=== PATIENT | male | born 1945 | race African-American/Black ===

== ENCOUNTER 2018-12-30 23:41 | Inpatient (IN) | payer OTHER ==
[2018-12-31 00:33] LABS: Protime INR 1.19
[2018-12-31] MEDS ORDERED: NA CHLORIDE 0.9% 2,000 ML ONE ×2 (00:34)
[2018-12-31 00:35] LABS: Absolute Lymphocytes (CBC) 0.5 K/uL (0.7-4.9); Basophils % 0.1 % (0-1.3); Hematocrit 35.5 % (39.6-49.0); Lymphocytes % 6.1 % (15.3-44.8); MPV 9.4 fL (7.6-11.3); RBC Red Blood Cell Count 4.15 M/uL (4.33-5.43)
[2018-12-31 00:44] LABS: Albumin 3.1 g/dL (3.4-5.0); Bilirubin Total 0.8 mg/dL (0.2-1.0); Potassium 3.6 mmol/L (3.5-5.1); Protein, Total 7.4 g/dL (6.4-8.2); Troponin (Emerg Dept Use Only) 0.02 ng/mL (0.0-0.045)
[2018-12-31] MEDS ORDERED: AZITHROMYCIN 500 MG INJ IVPB ONE (01:03)
[2018-12-31] MEDS ORDERED: CEFTRIAXONE/SWI 1gm 1 GM/10 ML SYR ONE (01:03)
[2018-12-31] MEDS ORDERED: NA CHLORIDE 0.9% 250 ML ONE (01:03)
[2018-12-31] MEDS ORDERED: ACETAMINOPHEN 500 MG TAB ONE (01:28)
[2018-12-31 01:50] LABS: Urine Blood TRACE (NEG); Urine Glucose NEGATIVE (NEG); Urine Protein 2+ (NEG); Urine Specific Gravity 1.025 (1.005-1.030)
[2018-12-31 02:22] LABS: Urine Bacteria 20-50 /HPF (NONE SEEN); Urine Culture Reflex Order REFLEXED; Urine Mucus 2+ /HPF (NONE SEEN); Urine RBC <5 /HPF (NONE SEEN)
[2018-12-31 02:40] LABS: Blood Morphology Comment NOT SEEN (NOT SEEN); Platelet Estimate ADEQ
--- NOTE | 2018-12-31 04:07 | ER ---
Nurse's Notes [facility] Name: Daniel Pan Age: 73 yrs Sex: Male : 1945 Arrival Date: 12/30/2018 Time: 23:51 Bed 19 Private MD: Diagnosis: fever;sepsis;complicated UTI Presentation: 12/31 00:00 Presenting complaint: EMS states: we were tone out with a complaint of fall. when we rr5 got there patient just slide from the bed and cannot stand up, lethargy noted complaining of fever max of temperature 102.8 F weakness, shaking and chills. AO x2 (person and place) patient is diaphoretic tired and sleepy. 00:00 Transition of care: patient was not received from another setting of care. Onset of rr5 symptoms was December 30, 2018. Risk Assessment: Do you want to hurt yourself or someone else?. Initial Sepsis Screen: Does the patient meet any 2 criteria? RR > 20 per min. Temp <36.0*C (96.8*F)) or > 38.3*C (100.9*F). Altered Mental Status. HR > 90 bpm. Yes Does the patient have a suspected source of infection? Yes: Productive cough/pneumonia. Care prior to arrival: Medication(s) given: Tylenol. 00:00 Method Of Arrival: EMS: [facility] rr5 00:00 Acuity: SHELLY 3 rr5 Historical: - Allergies: 00:00 No Known Allergies; rr5 - Home Meds: 00:00 Aspirin Oral [Active]; atorvastatin oral oral [Active]; cetirizine oral oral [Active]; rr5 cholecalciferol (vitamin D3) oral oral [Active]; cyanocobalamin (vitamin B-12) oral oral [Active]; Desonide Topical [Active]; finasteride oral oral [Active]; Glipizide Oral [Active]; Guaifenesin Oral [Active]; Hydrochlorothiazide Oral [Active]; Ketoconazole Topical [Active]; Metformin Oral [Active]; Metoprolol Tartrate Oral [Active]; - PMHx: 00:00 Diabetes - NIDDM; Hypertension; Myocardial infarction; Hyperlipidemia; GERD; rr5 - PSHx: 00:00 Tonsillectomy; rr5 - Immunization history:: Adult Immunizations up to date. - Social history:: Smoking status: Patient/guardian denies using tobacco, Patient/guardian denies using alcohol, street drugs. - Ebola Screening: : Patient negative for fever greater than or equal to 101.5 degrees Fahrenheit, and additional compatible Ebola Virus Disease symptoms Patient denies exposure to infectious person Patient denies travel to an Ebola-affected area in the 21 days before illness onset. Screenin:10 Abuse screen: Denies threats or abuse. Denies injuries from another. Nutritional rr5 screening: No deficits noted. Tuberculosis screening: No symptoms or risk factors identified. Fall Risk IV access (20 points). Gait- Weak (10 pts.). Mental Status- Overestimates/Forgets Limitations (15 pts.). Total Bernstein Fall Scale indicates High Risk Score (45 or more points). Fall prevention measures have been instituted. Side Rails Up X 2 Placed Close to Nursing Station Frequent Obs/Assessments Occuring Family Present and informed to notify staff if the need to leave the bedside As available patient and family educated on Fall Prevention Program and Strategies. Assessment: 00:00 General: Appears in no apparent distress. uncomfortable, ill, obese, Behavior is calm, rr5 cooperative, Reports chills for fever for fatigue for. Pain: Denies pain. Neuro: Level of Consciousness is awake, alert, obeys commands, Oriented to person, place, Moves all extremities. Full function Speech is normal, Facial symmetry appears normal, Pupils are PERRLA. Cardiovascular: Capillary refill < 3 seconds Patient's skin is warm and dry. Respiratory: Airway is patent Respiratory effort is even, unlabored, Respiratory pattern is tachypnea Parent/caregiver reports the patient having cough that is. GI: No signs and/or symptoms were reported involving the gastrointestinal system. : No signs and/or symptoms were reported regarding the genitourinary system. EENT: No signs and/or symptoms were reported regarding the EENT system. Derm: Skin is intact, Skin temperature is warm. Musculoskeletal: Circulation, motion, and sensation intact. Capillary refill < 3 seconds, Parent/caregiver report the patient having weakness in right leg and left leg fatigue ad tired. 00:48 Reassessment: ED provider aware for lactate level 4.7. called by fletcher of laboratory. rr5 01:00 Reassessment: Patient appears in no apparent distress at this time. No changes from rr5 previously documented assessment. 02:00 Reassessment: Patient appears in no apparent distress at this time. no complaints made. rr5 Patient states feeling better. Patient states symptoms have improved. 02:40 Reassessment: bands of 26% fletcher of laboratory staff called. ED provider aware. rr5 03:00 Reassessment: Patient appears in no apparent distress at this time. Patient is alert, rr5 oriented x 3, equal unlabored respirations, skin warm/dry/pink. Patient states feeling better. Patient states symptoms have improved. 04:17 Reassessment: dr. sellers at bedside examining the patient advised for admission. rr5 04:17 Reassessment: Patient appears in no apparent distress at this time. Patient and/or rr5 family updated on plan of care and expected duration. Pain level reassessed. Patient is alert, oriented x 3, equal unlabored respirations, skin warm/dry/pink. 05:00 Reassessment: Patient appears in no apparent distress at this time. hospitalist rr5 informed for the latest Vital signs after transfusion. 07:20 Reassessment: Report called to Magdalena DE LA PAZ. rr5 Vital Signs: 00:00 BP 133 / 57; Pulse 109; Resp 36; Temp 102.9; Pulse Ox 93% on R/A; Weight 135.62 kg; rr5 Height 6 ft. 0 in. (182.88 cm); Pain 0/10; 00:05 Pulse Ox 97% on 3 lpm NC; rr5 01:30 BP 118 / 68; Pulse 94; Resp 28; Temp 101; Pulse Ox 99% on 3 lpm NC; rr5 02:30 BP 102 / 68; Pulse 99; Resp 26; Temp 101; Pulse Ox 99% on 3 lpm NC; rr5 03:30 BP 97 / 52; Pulse 104; Resp 24; Temp 98.8; Pulse Ox 98% on 3 lpm NC; Pain 0/10; rr5 04:40 BP 108 / 60; Pulse 104; Resp 23; Pulse Ox 99% on 3 lpm NC; rr5 05:00 BP 108 / 69; Pulse 100; Resp 25; Temp 99.7; Pulse Ox 100% on 3 lpm NC; rr5 00:00 Body Mass Index 40.55 (135.62 kg, 182.88 cm) rr5 00:05 hooked to oxygen rr5 ED Course: 12/30 23:51 Patient arrived in ED. rr5 12/31 00:00 Arm band placed on right wrist. rr5 00:00 Maintain EMS IV. Dressing intact. Good blood return noted. Site clean \T\ dry. Gauge \T\ rr 5 site: G20 at right AC. 00:05 Inserted saline lock: 20 gauge in left antecubital area, using aseptic technique. Blood rr5 collected. 00:05 First set of blood cultures drawn by me. rr5 00:06 Emanuel Ba, ANA CRISTINA is Primary Nurse. rr5 00:07 Liban Langley MD is Attending Physician. ps1 00:20 Triage completed. rr5 00:20 Patient has correct armband on for positive identification. Placed in gown. Bed in low rr5 position. Call light in reach. Side rails up X2. disease control inspector on. Pulse ox on. NIBP on. 00:20 No provider procedures requiring assistance completed. rr5 00:37 Chest Single View XRAY In Process Unspecified. EDMS 01:25 EKG done, by ED staff, reviewed by Liban Langley MD Flu and/or RSV swab sent to lab. rr5 03:20 Repeat lab(s) drawn. by me, sent to lab. rr5 04:06 Eleuterio Sellers DO is Hospitalizing Provider. ps1 05:00 Patient admitted, IV remains in place. intact, No redness/swelling at site. rr5 Administered Medications: 00:35 Drug: NS 0.9% (30 ml/kg) 30 ml/kg Route: IV; Rate: bolus; Site: right antecubital; rr5 03:00 Follow up: Response: No adverse reaction; IV Status: Completed infusion; IV Intake: rr5 4068ml 00:55 Drug: Rocephin 1 grams Route: IV; Rate: bolus; Site: left antecubital; rr5 01:30 Follow up: Response: No adverse reaction; IV Status: Completed infusion rr5 01:20 Drug: AZITHromycin 500 mg Route: IVPB; Infused Over: 1 hrs; Site: left antecubital; rr5 02:20 Follow up: Response: No adverse reaction; IV Status: Completed infusion; IV Intake: rr5 250ml 01:31 Drug: Tylenol 1000 mg Route: PO; rr5 02:30 Follow up: Response: No adverse reaction; Marked relief of symptoms rr5 04:25 Drug: NS 0.9% 500 ml Route: IV; Rate: bolus; Site: right antecubital; rr5 05:06 Follow up: Response: No adverse reaction; IV Status: Completed infusion; IV Intake: rr5 500ml Intake: 02:20 IV: 250ml; Total: 250ml. rr5 03:00 IV: 4068ml; Total: 4318ml. rr5 05:06 IV: 500ml; Total: 4818ml. rr5 Outcome: 04:07 Decision to Hospitalize by Provider. ps1 07:20 Admitted to Med/surg room 217, with oxygen, with chart, Report called to Magdalena DE LA PAZ rr5 07:20 Condition: stable 07:20 Instructed on the need for admit, Demonstrated understanding of instructions. 07:41 Patient left the ED. hb Signatures: Dispatcher [employer] EDMS Sury Walls RN RN Liban Langley MD MD ps1 Emanuel Ba RN RN rr5
--- NOTE | 2018-12-31 04:08 | EDPHYS ---
Physician Documentation [facility] Name: Daniel Pan Age: 73 yrs Sex: Male : 1945 Arrival Date: 12/30/2018 Time: 23:51 Bed 19 Private MD: ED Physician Liban Langley HPI: 12/31 03:28 This 73 yrs old Black Male presents to ER via EMS with complaints of Fever. ps1 03:28 Patient BIBEMS 05/01 reported fall. Patient states that he did not fall but just lowered ps1 himself to the ground because of extreme fatigue in which he could not hold himself up. He does not know what is wrong other than he has had fever and chills. No NVD, mild cough. Has DM and BS wnl per EMS. Denies urinary symptoms. . Historical: - Allergies: 00:00 No Known Allergies; rr5 - Home Meds: 00:00 Aspirin Oral [Active]; atorvastatin oral oral [Active]; cetirizine oral oral [Active]; rr5 cholecalciferol (vitamin D3) oral oral [Active]; cyanocobalamin (vitamin B-12) oral oral [Active]; Desonide Topical [Active]; finasteride oral oral [Active]; Glipizide Oral [Active]; Guaifenesin Oral [Active]; Hydrochlorothiazide Oral [Active]; Ketoconazole Topical [Active]; Metformin Oral [Active]; Metoprolol Tartrate Oral [Active]; - PMHx: 00:00 Diabetes - NIDDM; Hypertension; Myocardial infarction; Hyperlipidemia; GERD; rr5 - PSHx: 00:00 Tonsillectomy; rr5 - Immunization history:: Adult Immunizations up to date. - Social history:: Smoking status: Patient/guardian denies using tobacco, Patient/guardian denies using alcohol, street drugs. - Ebola Screening: : Patient negative for fever greater than or equal to 101.5 degrees Fahrenheit, and additional compatible Ebola Virus Disease symptoms Patient denies exposure to infectious person Patient denies travel to an Ebola-affected area in the 21 days before illness onset. ROS: 03:28 Eyes: Negative for injury, pain, redness, and discharge, ENT: Negative for injury, ps1 pain, and discharge, Cardiovascular: Negative for chest pain, palpitations, and edema, Respiratory: Negative for shortness of breath, cough, wheezing, and pleuritic chest pain, Abdomen/GI: Negative for abdominal pain, nausea, vomiting, diarrhea, and constipation, MS/Extremity: Negative for injury and deformity, Skin: Negative for injury, rash, and discoloration, Neuro: Negative for headache, weakness, numbness, tingling, and seizure, Psych: Negative for depression, anxiety, suicide ideation, homicidal ideation, and hallucinations. 03:28 Constitutional: Positive for chills, fatigue, fever. Exam: 03:28 Constitutional: This is a well developed, well nourished patient who is awake, alert, ps1 and in no acute distress. Head/Face: Normocephalic, atraumatic. Eyes: Pupils equal round and reactive to light, extra-ocular motions intact. Lids and lashes normal. Conjunctiva and sclera are non-icteric and not injected. Chest/axilla: Normal chest wall appearance and motion. Nontender with no deformity. No lesions are appreciated. Cardiovascular: Regular rate and rhythm. No gallops, murmurs, or rubs. Normal PMI, no JVD. No pulse deficits. Abdomen/GI: Soft, non-tender, with normal bowel sounds. No distension or tympany. No guarding or rebound. No evidence of tenderness throughout. Skin: Warm, dry with normal turgor. Normal color with no rashes, no lesions, and no evidence of cellulitis. MS/ Extremity: Pulses equal, no cyanosis. Neurovascular intact. Full, normal range of motion. Neuro: Awake and alert, GCS 15, oriented to person, place, time, and situation. Cranial nerves II-XII grossly intact. Sensory grossly intact. 03:28 Respiratory: the patient does not display signs of respiratory distress, Respirations: normal, Breath sounds: bronchial sounds, Respiratory rate: 23 Vital Signs: 00:00 BP 133 / 57; Pulse 109; Resp 36; Temp 102.9; Pulse Ox 93% on R/A; Weight 135.62 kg; rr5 Height 6 ft. 0 in. (182.88 cm); Pain 0/10; 00:05 Pulse Ox 97% on 3 lpm NC; rr5 01:30 BP 118 / 68; Pulse 94; Resp 28; Temp 101; Pulse Ox 99% on 3 lpm NC; rr5 02:30 BP 102 / 68; Pulse 99; Resp 26; Temp 101; Pulse Ox 99% on 3 lpm NC; rr5 03:30 BP 97 / 52; Pulse 104; Resp 24; Temp 98.8; Pulse Ox 98% on 3 lpm NC; Pain 0/10; rr5 04:40 BP 108 / 60; Pulse 104; Resp 23; Pulse Ox 99% on 3 lpm NC; rr5 05:00 BP 108 / 69; Pulse 100; Resp 25; Temp 99.7; Pulse Ox 100% on 3 lpm NC; rr5 00:00 Body Mass Index 40.55 (135.62 kg, 182.88 cm) rr5 00:05 hooked to oxygen rr5 MDM: 01:25 Patient medically screened. ps1 04:07 Data reviewed: vital signs, nurses notes, and as a result, I will admit patient. ps1 Counseling: I had a detailed discussion with the patient and/or guardian regarding: the historical points, exam findings, and any diagnostic results supporting the discharge/admit diagnosis, [facility]. Will admit to our institution. . 12/31 00:18 Order name: Blood Culture Adult (2) ps1 12/31 00:18 Order name: CBC with Diff; Complete Time: 03:27 ps1 12/31 00:18 Order name: Lactate; Complete Time: 00:49 ps1 12/31 00:18 Order name: Lipase; Complete Time: 00:49 ps1 12/31 00:18 Order name: Procalcitonin; Complete Time: 01:27 ps1 12/31 00:18 Order name: Protime (+inr); Complete Time: 00:49 ps1 12/31 00:18 Order name: Troponin (emerg Dept Use Only); Complete Time: 00:49 ps1 12/31 00:18 Order name: Urine Microscopic Only; Complete Time: 03:27 ps1 12/31 00:18 Order name: CMP; Complete Time: 00:49 ps1 12/31 00:39 Order name: Manual Differential; Complete Time: 03:27 EDMS 12/31 01:11 Order name: Urine Dipstick--Ancillary (enter results); Complete Time: 02:13 ar5 12/31 01:22 Order name: Glucometer Result Nova; Complete Time: 02:13 rr5 12/31 01:24 Order name: Flu; Complete Time: 02:13 ps1 12/31 02:23 Order name: Urine Culture EDMS 12/31 00:18 Order name: Chest Single View XRAY ps1 12/31 00:18 Order name: Accucheck; Complete Time: 01:20 ps1 12/31 00:18 Order name: Cardiac monitoring; Complete Time: 01: ps1 12/31 00:18 Order name: EKG - Nurse/Tech; Complete Time: : ps1 12/31 00:18 Order name: IV Saline Lock - Large Bore; Complete Time: 01: ps1 12/31 00:18 Order name: Labs collected and sent; Complete Time: : ps1 12/31 00:18 Order name: O2 Per Protocol; Complete Time: : ps1 12/31 00:18 Order name: O2 Sat Monitoring; Complete Time: 01: ps1 12/31 00:18 Order name: Urine Dipstick-Ancillary (obtain specimen); Complete Time: : ps1 12/31 04:08 Order name: Lactate Sepsis 2 HR Follow-up; Complete Time: 04:12 EDMS Administered Medications: 00:35 Drug: NS 0.9% (30 ml/kg) 30 ml/kg Route: IV; Rate: bolus; Site: right antecubital; rr5 03:00 Follow up: Response: No adverse reaction; IV Status: Completed infusion; IV Intake: rr5 4068ml 00:55 Drug: Rocephin 1 grams Route: IV; Rate: bolus; Site: left antecubital; rr5 01:30 Follow up: Response: No adverse reaction; IV Status: Completed infusion rr5 01:20 Drug: AZITHromycin 500 mg Route: IVPB; Infused Over: 1 hrs; Site: left antecubital; rr5 02:20 Follow up: Response: No adverse reaction; IV Status: Completed infusion; IV Intake: rr5 250ml 01:31 Drug: Tylenol 1000 mg Route: PO; rr5 02:30 Follow up: Response: No adverse reaction; Marked relief of symptoms rr5 04:25 Drug: NS 0.9% 500 ml Route: IV; Rate: bolus; Site: right antecubital; rr5 05:06 Follow up: Response: No adverse reaction; IV Status: Completed infusion; IV Intake: rr5 500ml Disposition: 12/31/18 04:07 Hospitalization ordered by Eleuterio Ralph for Inpatient Admission. Preliminary diagnosis are fever, sepsis, complicated UTI. - Bed requested for Telemetry/MedSurg (Inpatient). - Status is Inpatient Admission. hb - Condition is Stable. - Problem is new. - Symptoms are unchanged. UTI on Admission? Yes Signatures: Dispatcher [employer] EDMI Lisette Campa RN RN Sury Walls RN RN Liban Langley MD MD [facility] Emanuel Ba RN RN rr5 Corrections: (The following items were deleted from the chart) 04:14 04:07 Hospitalization Ordered by Eleuterio Ralph DO for Inpatient Admission. Preliminary cg diagnosis is fever; sepsis; complicated UTI. Bed requested for Telemetry/MedSurg (Inpatient). Status is Inpatient Admission. Condition is Stable. Problem is new. Symptoms are unchanged. UTI on Admission? Yes. ps1 04:14 04:14 12/31/2018 04:07 Hospitalization Ordered by Eleuterio Ralph DO for Inpatient cg Admission. Preliminary diagnosis is fever; sepsis; complicated UTI. Bed requested for [facility] ER HOLD. Status is Inpatient Admission. Condition is Stable. Problem is new. Symptoms are unchanged. UTI on Admission? Yes. 04:40 04:14 12/31/2018 04:07 Hospitalization Ordered by Eleuterio Ralph DO for Inpatient cg Admission. Preliminary diagnosis is fever; sepsis; complicated UTI. Bed requested for [facility] ER HOLD. Status is Inpatient Admission. Condition is Stable. Problem is new. Symptoms are unchanged. UTI on Admission? Yes. 07:41 04:40 12/31/2018 04:07 Hospitalization Ordered by Eleuterio Ralph DO for Inpatient hb Admission. Preliminary diagnosis is fever; sepsis; complicated UTI. Bed requested for Telemetry/MedSurg (Inpatient). Status is Inpatient Admission. Condition is Stable. Problem is new. Symptoms are unchanged. UTI on Admission? Yes.
[2018-12-31] MEDS ORDERED: NA CHLORIDE 0.9% 500 ML ONE (04:21)
--- NOTE | 2018-12-31 04:38 | P.HP ---
Certification for Inpatient Patient admitted to: Inpatient With expected LOS: >2 Midnights Patient will require the following post-hospital care: None Practitioner: I am a practitioner with admitting privileges, knowledge of patient current condition, hospital course, and medical plan of care. Services: Services provided to patient in accordance with Admission requirements found in Title 42 Section 412.3 of the Code of Federal Regulations Patient History Date of Service: 12/31/18 Primary Care Provider: [facility] Reason for admission: Fever, fatigue History of Present Illness: 73-year-old male presented to the emergency room by EMS for fever, fatigue. Patient with history of diabetes mellitus type 2, hypertension, BPH, hyperlipidemia, and GERD. Patient seen at the OR Clinic. Patient reported fatigue over the past several days. He has been getting more weak. He reported a fever today. Chills noted. He had mild shortness of breath but no chest pain. He denied any nausea, vomiting. He does have some issues with poor urinary stream. No sick contacts noted. This afternoon he got out of bed but fell down due to his weakness. He was brought in by EMS to the emergency room. In the ER patient evaluated. Patient was hypotensive in the emergency room. Patient started on sepsis protocol. 4 L IV fluids given. Blood pressure slightly improved to around a map of 65. Patient was febrile. On lab white count 8.4, hemoglobin 12.1. Percent neutrophils 91. 26 bands. Lactic acid elevated at 4.7 along with a pro calcitonin elevated at 0.37. Sodium 138, potassium 3.6. BUN of 13 creatinine 1.3 GFR 51. Glucose 219. Urinalysis showed bacteria. Chest x-ray unremarkable. Initiation of transfer to the OR was done in the emergency room. Unfortunately the OR did not have any beds. Therefore patient admitted for further evaluation and treatment. When I saw the patient ER, patient appeared stable. Blood pressure slightly low. Still warm to touch. at bedside. No sick contacts noted Home medications list reviewed: Yes - Past Medical/Surgical History Diabetic: Yes -: Diabetes mellitus type 2, [id number] -: Hypertension -: Hyperlipidemia -: GERD -: BPH -: Obesity -: B12 deficiency Past Surgical History: Patient denies surgical history Psychosocial/ Personal History: Patient is - Family History Family History: Reviewed- Non-Contributory - Social History Smoking Status: Never smoker Alcohol use: No CD- Drugs: No Caffeine use: Yes Place of Residence: Home Review of Systems General: Fever, Chills, Weakness, Malaise, As per HPI Eyes: Unremarkable ENT: Unremarkable Respiratory: Shortness of Breath, As per HPI Cardiovascular: Unremarkable Gastrointestinal: Unremarkable Genitourinary: Urgency, Incontinence, As per HPI Musculoskeletal: Unremarkable Integumentary: Unremarkable Neurological: Unremarkable Lymphatics: Unremarkable Physical Examination - Physical Exam General: Alert, In no apparent distress, Oriented x3, Cooperative HEENT: Atraumatic, Normocephalic, PERRLA, Other (Dry mucous membranes) Neck: Supple, No Thyromegaly Respiratory: Clear to auscultation bilaterally, Normal air movement Cardiovascular: Normal pulses, Regular rate/rhythm Gastrointestinal: Normal bowel sounds, Soft and benign, Non-distended, No tenderness, No masses, No rebound, No guarding Musculoskeletal: No contractures, No erythema, No tenderness, No warmth Integumentary: No tenderness/swelling, No erythema, No warmth, No cyanosis Neurological: Normal speech, Normal strength at 5/5 x4 extr, Normal tone, Normal affect - Studies Laboratory Data (last 24 hrs) 12/31/18 00:05: PT 14.0 H, INR 1.19 12/31/18 00:05: Sodium 138, Potassium 3.6, BUN 13, Creatinine 1.38 H, Glucose 219 H, Total Bilirubin 0.8, AST 43 H, ALT 59, Alkaline Phosphatase 77, Lipase 84 12/31/18 00:05: WBC 8.4, Hgb 12.1 L, Hct 35.5 L, Plt Count 167 Microbiology Data (last 24 hrs): 12/31/18 01:25 Nasopharnyx Influenza Type A Antigen Screen - Final 12/31/18 01:25 Nasopharnyx Influenza Type B Antigen Screen - Final Assessment and Plan - Plan Impression: Sepsis secondary to UTI Diabetes mellitus type 2 non-insulin dependent History of hypertension Hyperlipidemia BPH GERD Obesity Plan: Sepsis secondary to UTI: Patient admitted for further evaluation and treatment. Sepsis protocol initiated. Patient will be admitted to the ICU. Patient received 4 L of IV fluids in the emergency room. Will continue with aggressive IV fluid hydration. Patient may require Levophed if blood pressure remains low. Will start vancomycin and cefepime. Blood, urine cultures obtained. Will place Paz catheter for strict input and output. DVT prophylaxis-Lovenox provided. Will continue to monitor the patient closely. Daytime hospitalist will continue his care and follow up on sepsis protocol. Diabetes mellitus type 2 non-insulin dependent: Will provide Accu-Cheks and sliding scale. History of hypertension: Will hold blood pressure medication at this time due to sepsis. Hyperlipidemia: Obtain and verify home medication. BPH: Obtain and verify home medication. GERD: Will provide medication. Obesity: Will address lifestyle modification education. Discharge Plan: Home Plan to discharge in: Greater than 2 days - Advance Directives Does patient have a Living Will: No Does patient have a Durable POA for Healthcare: No - Code Status/Comfort Care Code Status Assessed: Yes (Patient is full code) Time Spent Managing Pts Care (In Minutes): 60
[2018-12-31] MEDS ORDERED: ONDANSETRON 4 MG/2 ML VIAL IV PRN (07:34)
[2018-12-31] MEDS: VANCOMYCIN 1 GM in NA CHLORIDE 0.9% 500 ML IVPB SCH ×2 (07:34→09:00)
[2018-12-31] MEDS: INSULIN -REGULAR HUMAN 50 UNIT/0.5 ML ML SQ SCH ×4 (07:34→21:00)
[2018-12-31] MEDS ORDERED: NACHLORIDE 0.45% 1,000 ML IV SCH (07:34)
[2018-12-31] MEDS ORDERED: CEFEPIME 1 GM/VIAL IV SCH (07:34)
[2018-12-31 08:29] VITALS: BMI 40.4
[2018-12-31] MEDS: FAMOTIDINE 20 MG TAB PO SCH ×2 (08:48→21:42)
[2018-12-31] MEDS: ENOXAPARIN 40 MG/0.4 ML SQ SCH (08:51)
[2018-12-31 09:40] LABS: Thyroid Stimulating Hormone 0.211 uIU/mL (0.360-3.740)
[2018-12-31] MEDS ORDERED: NA CHLORIDE 0.9% 1,000 ML IV ONE (09:57)
[2018-12-31] MEDS ORDERED: NA CHLORIDE 0.9% 1,000 ML ONE (10:07)
[2018-12-31] MEDS: CEFEPIME/SWI 1gm 10 ML IV SCH ×2 (10:40→21:40)
[2018-12-31] MEDS: VANCOMYCIN 2.5 GM in NA CHLORIDE 0.9% 500 ML IVPB SCH (11:35)
--- NOTE | 2018-12-31 12:46 | P.PN ---
Subjective Date of Service: 12/31/18 Primary Care Provider: [facility] Chief Complaint: Fever, fatigue Subjective: Improving (Patient having some shortness of breath requiring 4 L of oxygen. States he feels better than yesterday) Review of Systems 10-point ROS is otherwise unremarkable Respiratory: Shortness of Breath Physical Examination - Vital Signs Temperature: 98.9 F Blood Pressure: 118/58 Pulse: 91 Respirations: 26 Pulse Ox (%): 100 - Physical Exam General: Alert, Oriented x3, Mild distress, Obese, Other (Ill-appearing elderly male) HEENT: Atraumatic, PERRLA, EOMI Neck: Supple, JVD not distended Respiratory: Clear to auscultation bilaterally, Normal air movement, Other (No use of accessory muscles. No stridor) Cardiovascular: Regular rate/rhythm, Normal S1 S2, Edema Capillary refill: <2 Seconds Gastrointestinal: Normal bowel sounds, No tenderness Musculoskeletal: No tenderness Integumentary: No rashes, No erythema Neurological: Normal speech, Normal strength at 5/5 x4 extr, Normal tone, Cranial nerves 3-12 intact, Normal affect - Studies Laboratory Data (last 24 hrs) 12/31/18 00:05: PT 14.0 H, INR 1.19 12/31/18 00:05: Sodium 138, Potassium 3.6, BUN 13, Creatinine 1.38 H, Glucose 219 H, Total Bilirubin 0.8, AST 43 H, ALT 59, Alkaline Phosphatase 77, Lipase 84 12/31/18 00:05: WBC 8.4, Hgb 12.1 L, Hct 35.5 L, Plt Count 167 ABG pH 7.37, pCO2 36, PO2 100, bicarb 20 Microbiology Data (last 24 hrs): 12/31/18 01:25 Nasopharnyx Influenza Type A Antigen Screen - Final 12/31/18 01:25 Nasopharnyx Influenza Type B Antigen Screen - Final Medications List Reviewed: Yes Assessment And Plan - Plan Sepsis secondary to UTI with organ failure: Will continue IV antibiotics. Patient's lactate still elevated. Will obtain ABG give 1 later normal saline bolus and recheck lactate level in 2 hr. Acute cystitis without hematuria: Continue with IV antibiotics. Follow up on urine cultures Acute kidney injury will repeat BMP in a.m.. Continue IV fluids. Avoid NSAIDs. Diabetes mellitus type 2 non-insulin dependent: Continue sliding-scale insulin. Monitor Accu-Cheks History of hypertension patient is currently hypotensive. Will hold blood pressure medications for now Next Hyperlipidemia continue statin BPH patient did have some difficulty with urinating completely. Will resume medications if blood pressure is improved GERD without esophagitis stable Morbid Obesity BMI 40 Discharge Plan: Home Plan to discharge in: 48 Hours - Code Status/Comfort Care Code Status Assessed: Yes
[2018-12-31 12:50] LABS: Arterial Blood Carboxyhemoglob 1.6 % (0-1.5); Blood Gas Oxyhemoglobin 95.5 % (94-97); Blood O2 Saturation 97.5 % (92-98.5)
[2018-12-31] MEDS: ACETAMINOPHEN 500 MG TAB PO PRN (12:51)
--- NOTE | 2018-12-31 12:51 | P.INFCA ---
Sepsis Focused Assessment - Focused Assessment Complete? Sepsis Focused Assessment Completed?: Yes - Sepsis Screen Result Severe Sepsis: Positive - Evaluation Current stage of sepsis: Severe sepsis - Vital Signs Reviewed: Yes Temperature: 98.9 F Heart rate: 91 Blood Pressure: 118/58 Respiratory Rate: 26 O2 Sat by Pulse Oximetry: 100 - Examination Date exam was performed: 12/31/18 Time exam was performed: 08:20 Heart: Regular rate/rhythm Lungs: Clear bilaterally Peripheral pulses: 2+ Slightly diminished Peripheral pulse location: Pedal Capillary refill: <2 Seconds Skin examination: Normal turgor
[2018-12-31] MEDS: NA CHLORIDE 0.9% 1,000 ML IV SCH ×2 (13:51→23:50)
--- NOTE | 2018-12-31 16:10 | ECHO ---
HEIGHT: 6 ft 0 in WEIGHT: 298 lb 0 oz DATE OF STUDY: 12/31/[address]: Eleuterio Ralph DO 2-DIMENSIONAL: YES M.MODE: YES DOPPLER: YES COLOR FLOW: YES TDS: YES PORTABLE: DEFINITY: BUBBLE STUDY: DIAGNOSIS: SEPSIS, UTI CARDIAC HISTORY: CATHERIZATION: NO SURGERY: NO PROSTHETIC VALVE: NO PACEMAKER: NO MEASUREMENTS (cm) DIASTOLIC (NORMALS) SYSTOLIC (NORMALS) IVSd 1.2 (0.6-1.2) LA Diam 4.4 (1.9-4.0) LVEF 60-65% LVIDd 5.2 (3.5-5.7) LVIDs 3.7 (2.0-3.5) %FS 28% LVPWd 1.4 (0.6-1.2) Ao Diam 3.2 (2.0-3.7) 2 DIMENSIONAL ASSESSMENT: RIGHT ATRIUM: NORMAL LEFT ATRIUM: NORMAL RIGHT VENTRICLE: NORMAL LEFT VENTRICLE: NORMAL TRICUSPID VALVE: NORMAL MITRAL VALVE: NORMAL PULMONIC VALVE: NORMAL AORTIC VALVE: NORMAL PERICARDIAL EFFUSION: NONE AORTIC ROOT: NORMAL LEFT VENTRICULAR WALL MOTION: NORMAL DOPPLER/COLOR FLOW: NORMAL COMMENTS: NORMAL TWO DIMENSIONAL ECHOCARDIOGRAM WITH DOPPLER. TECHNOLOGIST: OSMIN WU
--- NOTE | 2018-12-31 19:26 | RAD REPORT ---
EXAM DESCRIPTION: Carissa Lyons (2 Views)12/31/2018 7:18 pm CLINICAL HISTORY: Sepsis COMPARISON: December 2018 FINDINGS: The lungs appear clear of acute infiltrate. The heart is borderline enlarged IMPRESSION: No acute abnormalities displayed
[2018-12-31] MEDS: FINASTERIDE 5 MG TAB PO SCH (21:40)
[2019-01-01] MEDS: ACETAMINOPHEN 500 MG TAB PO PRN (01:31)
--- NOTE | 2019-01-01 03:10 | P.PN ---
Subjective Date of Service: 01/01/19 Primary Care Provider: [facility] Chief Complaint: Fever, fatigue Subjective: Other (Patient improving. Still requiring oxygen.) Physical Examination - Vital Signs Temperature: 100 F Blood Pressure: 133/87 Pulse: 78 Respirations: 24 Pulse Ox (%): 97 - Physical Exam General: Alert, In no apparent distress, Oriented x3, Cooperative HEENT: Atraumatic Neck: Supple Respiratory: Clear to auscultation bilaterally, Normal air movement Cardiovascular: Normal pulses, Regular rate/rhythm Gastrointestinal: Normal bowel sounds, Soft and benign, Non-distended, No tenderness, No masses, No rebound, No guarding Musculoskeletal: No erythema, No tenderness, No warmth Integumentary: No erythema, No warmth, No cyanosis Neurological: Normal speech, Normal strength at 5/5 x4 extr, Normal tone, Normal affect - Studies Microbiology Data (last 24 hrs): 12/31/18 01:25 Nasopharnyx Influenza Type A Antigen Screen - Final 12/31/18 01:25 Nasopharnyx Influenza Type B Antigen Screen - Final Medications List Reviewed: Yes Assessment & Plan Discharge Plan: Home Plan to discharge in: Greater than 2 days Physician Review Additional Text: Impression: Severe Sepsis secondary to UTI Diabetes mellitus type 2 non-insulin dependent History of hypertension Hyperlipidemia BPH GERD Obesity, BMI 40 Suspect underlying obstructive sleep apnea Plan: Severe Sepsis secondary to UTI: Continue with IV fluid hydration. Lungs clear. Chest x-rayed earlier unremarkable. Echocardiogram done earlier shows normal ejection fraction. Continue IV antibiotic therapy. Await blood, he urine culture results. Strict input and output. Continue DVT prophylaxis- Lovenox. Encourage incentive spirometer. Daytime hospitalist to continue to monitor closely. Consider physical therapy once improved. Diabetes mellitus type 2 non-insulin dependent: Continue with Accu-Cheks and sliding scale. Oral medication currently on hold History of hypertension: Will continue to blood pressure medications from home- lisinopril/metoprolol at this time due to sepsis. If blood pressure elevates may need to restart medication Hyperlipidemia: Continue medication. BPH: Continue medication. GERD: Continue medication. Obesity: BMI 40. Will address lifestyle modification education. Patient likely with underlying obstructive sleep apnea: This can be further addressed as an outpatient. Time Spent Managing Pts Care (In Minutes): 55
--- NOTE | 2019-01-01 04:43 | EKG ---
Test Date: 2018-12-31 Test Time: 01:16:54 Kier Operator: RR MEASUREMENT RESULTS: Intervals: Rate: 94 WA: 164 QRSD: 86 QT: 326 QTc: 407 [place]: P: 38 WA: 164 QRS: 92 T: 4 INTERPRETIVE STATEMENTS: Normal sinus rhythm Rightward axis T wave abnormality, consider inferior ischemia Abnormal ECG Compared to ECG 12/19/2003 07:37:00 Right-axis deviation now present Possible ischemia now present T-wave abnormality still present Electronically Signed On 01-01-19 04:42:30 CDT by Estevan Glaser
[2019-01-01 06:11] LABS: Absolute Lymphocytes (CBC) 0.9 K/uL (0.7-4.9); Basophils % 0.2 % (0-1.3); Hematocrit 29.7 % (39.6-49.0); Lymphocytes % 7.2 % (15.3-44.8); MPV 9.2 fL (7.6-11.3); RBC Red Blood Cell Count 3.47 M/uL (4.33-5.43)
[2019-01-01 06:12] LABS: Magnesium 1.9 mg/dL (1.8-2.4); Potassium 3.8 mmol/L (3.5-5.1)
[2019-01-01] MEDS: INSULIN -REGULAR HUMAN 50 UNIT/0.5 ML ML SQ SCH ×4 (07:30→21:00)
[2019-01-01] MEDS: FAMOTIDINE 20 MG TAB PO SCH ×2 (08:28→21:47)
[2019-01-01] MEDS: VITAMIN D 400 UNIT TAB PO SCH ×3 (08:28→21:47)
[2019-01-01] MEDS: CYANOCOBALAMIN 1,000 MCG TAB PO SCH (08:29)
[2019-01-01] MEDS: ASPIRIN EC 81 MG TAB PO SCH (08:30)
[2019-01-01] MEDS: ENOXAPARIN 40 MG/0.4 ML SQ SCH (08:30)
[2019-01-01] MEDS: CEFEPIME/SWI 1gm 10 ML IV SCH ×2 (08:31→21:47)
[2019-01-01] MEDS ORDERED: POTASSIUM CL SA 10 MEQ TAB PO ONE (09:00)
[2019-01-01] MEDS: VANCOMYCIN 2.5 GM in NA CHLORIDE 0.9% 500 ML IVPB SCH (11:23)
[2019-01-01] MEDS: NA CHLORIDE 0.9% 1,000 ML IV SCH ×3 (13:54→21:47)
--- NOTE | 2019-01-01 14:32 | P.PN ---
Date of Service: 01/01/19 Patient seen and examined. Chart reviewed and case discussed w RN. Nurse called w lab alert. Blood cultures positive for gram positive cocci. Will cont Vanc. Lactate improving. Await ID and sensitivity for blood cultures.
--- NOTE | 2019-01-01 15:56 | RAD REPORT ---
EXAM DESCRIPTION: Carissa Single View12/31/2018 7:05 pm CLINICAL HISTORY: cough COMPARISON: none FINDINGS: Tubing overlies the right lateral upper chest Lungs appear clear of acute infiltrate Heart is borderline enlarged
[2019-01-01] MEDS ORDERED: IBUPROFEN 400 MG TAB PO PRN (17:29)
[2019-01-01] MEDS: ATORVASTATIN 80 MG TAB PO SCH ×2 (21:00→21:47)
[2019-01-01] MEDS ORDERED: CLOTRIMAZOLE 1% CREAM 15 GM TOP SCH (21:00)
[2019-01-01] MEDS: FINASTERIDE 5 MG TAB PO SCH ×2 (21:00→21:47)
[2019-01-01] MEDS: CLOTRIMAZOLE 1% CREAM 15 GM TOP SCH (21:00)
[2019-01-02] MEDS: NA CHLORIDE 0.9% 1,000 ML IV SCH (05:26)
[2019-01-02 06:10] LABS: Basophils % 0.3 % (0-1.3); Hematocrit 31.4 % (39.6-49.0); Lymphocytes % 9.8 % (15.3-44.8); MPV 9.6 fL (7.6-11.3); RBC Red Blood Cell Count 3.68 M/uL (4.33-5.43)
[2019-01-02 06:17] LABS: BUN Blood Urea Nitrogen 11 mg/dL (7-18); Bicarbonate 28 mmol/L (21-32); Glucose Level 136 mg/dL (74-106); Magnesium 2.2 mg/dL (1.8-2.4); Potassium 3.8 mmol/L (3.5-5.1); Sodium Level 142 mmol/L (136-145)
[2019-01-02] MEDS: INSULIN -REGULAR HUMAN 50 UNIT/0.5 ML ML SQ SCH ×4 (07:30→21:00)
[2019-01-02] MEDS ORDERED: POTASSIUM CL SA 10 MEQ TAB PO ONE (09:00)
[2019-01-02] MEDS: VITAMIN D 400 UNIT TAB PO SCH ×2 (09:00→21:00)
[2019-01-02] MEDS: ASPIRIN EC 81 MG TAB PO SCH (09:00)
[2019-01-02] MEDS: FAMOTIDINE 20 MG TAB PO SCH ×2 (09:00→21:59)
[2019-01-02] MEDS: CYANOCOBALAMIN 1,000 MCG TAB PO SCH (09:00)
[2019-01-02] MEDS: CEFEPIME/SWI 1gm 10 ML IV SCH ×2 (09:07→22:00)
[2019-01-02] MEDS: ENOXAPARIN 40 MG/0.4 ML SQ SCH (09:08)
[2019-01-02] MEDS: VANCOMYCIN 2.5 GM in NA CHLORIDE 0.9% 500 ML IVPB SCH (11:18)
[2019-01-02] MEDS ORDERED: GUAIFENESIN/CODEINE 5ML UCUP PO PRN (14:44)
[2019-01-02] MEDS ORDERED: NA CHLORIDE 0.9% 1,000 ML IV SCH (15:00)
--- NOTE | 2019-01-02 20:23 | PN ---
Date of Progress Note: 01/02/2019 Subjective: Patient seen and examined. Chart reviewed and the case discussed with RN. Patient had an uneventful night. States he is feeling better. Medications: List reviewed. Physical Examination: Vital Signs: Temperature 97.4, heart rate 71, blood pressure 147/72, respirations 20, O2 96% on room air. General: Awake, alert, oriented x3. Morbidly obese male, not in any acute distress. CV: S1, S2. Regular rate and rhythm. Peripheral pulses present. Respiratory: Moving air well bilaterally. No wheezing or stridor. Gastrointestinal: Abdomen is soft, nontender, nondistended. Positive bowel sounds. Extremities: No clubbing, cyanosis, or edema. Neuro: Nonfocal. Laboratory Data: Sodium 142, potassium 3.8, chloride 110, CO2 of 28, BUN 11, creatinine 0.93, glucos e 136, calcium 8, magnesium 2.2. Lactate down to 1.6. WBC 10.2, H and H 10.6 and 31.4, platelets 14 9, neutrophils 77%. Blood cultures showing gram-positive cocci. Urine culture growing mixed buffy. Assessment And Plan: A 73-year-old male with: 1.Sepsis secondary to urinary tract infection and bacteremia with organ failure, improving. Lactate is now normal. Continue with sepsis bundle. 2.Acute cystitis without hematuria. Cultures showing no growth. We will continue IV antibiotics. 3.Bacteremia, due to gram-positive cocci. We will await ID and sensitivity. 4.Acute kidney injury. Creatinine has improved and now normalized. We will continue to monitor, av oid NSAIDs. 5.Diabetes mellitus type 2, non-insulin dependent with hyperglycemia. We will continue sliding scal e insulin and monitor blood glucose levels. 6.Hypertension. Patient was initially hypotensive. Resume blood pressure medications as appropriat e. 7.Mixed hyperlipidemia. Continue statin. 8.BPH, stable. 9.Gastroesophageal reflux disease without esophagitis, stable. 10.Morbid obesity. Body mass index greater than 40. Plan: Likely discharge in the next 24 to 48 hours depending on clinical response. ID consult for ba cteremia. SA/MODL Voice ID: [id number] Report ID: [id number]
[2019-01-02] MEDS: FINASTERIDE 5 MG TAB PO SCH (21:00)
[2019-01-02] MEDS: CLOTRIMAZOLE 1% CREAM 15 GM TOP SCH (21:00)
[2019-01-02] MEDS: ATORVASTATIN 80 MG TAB PO SCH (21:00)
--- NOTE | 2019-01-02 21:20 | RAD REPORT ---
EXAM DESCRIPTION: RAD - Chest Pa And Lat (2 Views) - 01/02/2019 6:42 pm CLINICAL HISTORY: cough, sputum production COMPARISON: December 31, 2018 TECHNIQUE: PA and lateral views of the chest were obtained. FINDINGS: The lungs are underinflated. No dense consolidation or mass. Lung markings are not substan tially different. Heart size is normal and central vasculature is within normal limits. Small pleu ral effusions are suspected. No pneumothorax. No acute bony finding noted. No aortic abnormality. IMPRESSION: Small bilateral pleural effusions. No focal mass or consolidation. Mild interstitial edema or infiltrate still possible.
[2019-01-02] MEDS: GUAIFENESIN 600 MG SA TAB PO SCH (21:59)
[2019-01-03] MEDS ORDERED: VANCOMYCIN 2.5 GM in NA CHLORIDE 0.9% 500 ML IVPB SCH (05:00)
[2019-01-03 05:29] LABS: Absolute Lymphocytes (CBC) 1.2 K/uL (0.7-4.9); Basophils % 0.3 % (0-1.3); Hematocrit 32.6 % (39.6-49.0); Lymphocytes % 13.5 % (15.3-44.8); RBC Red Blood Cell Count 3.81 M/uL (4.33-5.43)
[2019-01-03 05:49] LABS: BUN Blood Urea Nitrogen 9 mg/dL (7-18); Bicarbonate 29 mmol/L (21-32); Glucose Level 120 mg/dL (74-106); Potassium 3.4 mmol/L (3.5-5.1); Sodium Level 143 mmol/L (136-145)
[2019-01-03] MEDS: INSULIN -REGULAR HUMAN 50 UNIT/0.5 ML ML SQ SCH ×3 (07:30→16:30)
[2019-01-03] MEDS: FAMOTIDINE 20 MG TAB PO SCH (09:00)
[2019-01-03] MEDS: CYANOCOBALAMIN 1,000 MCG TAB PO SCH (09:00)
[2019-01-03] MEDS: ASPIRIN EC 81 MG TAB PO SCH (09:00)
[2019-01-03] MEDS ORDERED: POTASSIUM CL SA 10 MEQ TAB PO ONE (09:00)
[2019-01-03] MEDS: VITAMIN D 400 UNIT TAB PO SCH (09:00)
[2019-01-03] MEDS: ENOXAPARIN 40 MG/0.4 ML SQ SCH (09:15)
[2019-01-03] MEDS: CEFEPIME/SWI 1gm 10 ML IV SCH (09:15)
[2019-01-03] MEDS: GUAIFENESIN 600 MG SA TAB PO SCH (09:16)
[2019-01-03 16:15] VITALS: O2SAT 96
[2019-01-03 16:31] VITALS: BP 139/73; TEMP 97.8
--- NOTE | 2019-01-03 20:08 | CON ---
History Of Present Illness: This is a 73-year-old male. I was consulted for bacteremia and urinary tract infection with sepsis and leukocytosis. The patient is feeling a whole lot better. 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 Since then, he has been on IV antibiotic including cefepime and vancomycin. The patient has been feeling much better today. His culture reports did not grow anything except bl ood culture showed preliminary gram-positive cocci in pairs and chains. Past Medical History: Significant past medical history of diabetes mellitus, hypertension, hyperlipi demia, reflux, benign prostate hypertrophy, morbid obesity. Social History: Nonsmoker, nondrinker. Family History: Noncontributory. Medications: Vancomycin, cefepime. See [facility] for other medication. Allergies: NO KNOWN DRUG ALLERGIES. Review of Systems: A 10-point review was performed. Physical Examination: Vital Signs: Temperature 98, pulse 67, respirations 18, blood pressure 152/70. HEENT: Unremarkable. Neck: Supple. Lungs: Basal crackles. Heart: S1, S2. Regular. Abdomen: Soft, nontender. Bowel sounds present. Extremities: 2+ edema. Laboratory Data: WBC 9.1, down from 13,000; hemoglobin 10.9; platelets 187. Chemistry shows sodium 143, potassium 3.4, chloride 107, bicarb 29, BUN 9, creatine 0.52, glucose 120. Micro data shows blo od culture preliminary from 12/31 gram-positive cocci in pairs and chains. No sensitivity or specifi city is out. Assessment And Plan: We will recommend to change it to Augmentin 500 mg p.o. q.8 hours for total of 2 weeks. Continue supportive care and follow up with his primary care doctor for prostate check and monitor urinalysis for recurrent urine infection. We will follow the patient closely. Thank you, Dr. Quinonez and Dr. Ralph, for consult. BONITA/KATERYNA Voice ID: [id number] Report ID: [id number]
--- NOTE | 2019-01-04 12:33 | DS ---
Date of Discharge: 01/03/2019 Consultants: Dr. Shelton with Infectious Disease. Admitting Diagnoses: 1.Sepsis. 2.Acute cystitis. 3.Diabetes mellitus type 2, [id number]-wojtabrll with hyperglycemia. 4.Essential hypertension. 5.Mixed hyperlipidemia. 6.Benign prostatic hyperplasia. 7.Gastroesophageal reflux disease without esophagitis. 8.Morbid obesity. Discharge Diagnoses: 1.Sepsis secondary to urinary tract infection and bacteremia. 2.Acute cystitis without hematuria. 3.Bacteremia due to gram-positive cocci. 4.Acute kidney injury, resolved. 5.Diabetes mellitus type 2, ame-vwtczge-opnowdtxd with hyperglycemia. 6.Essential hypertension, stable. 7.Mixed hyperlipidemia. 8.Benign prostatic hyperplasia, stable. 9.Gastroesophageal reflux disease without esophagitis, stable. 10.Morbid obesity. BMI of 40. Hospital Course: Patient is a 73-year-old male with past medical history of diabetes, hypertension, BPH, GERD, comes in with fever and fatigue. The patient was hypotensive, febrile, found to be septic . He had elevated lactate at 4.7. Patient was started on IV fluid boluses and received sepsis bundl e 30 mL/kg, continued to be acidotic. Lactate improved initially however went back up to 5.5. Patie nt was again bolused. He was started on IV antibiotics. White blood cell count jumped up to 13,000. He did have 26% bands. Source of infection was thought to be bladder infection. Culture however s howed mixed buffy. Blood cultures, however, grew out gram-positive cocci with final ID pending. Inf luenza screen was negative. He was seen by Infectious Disease. His potassium was slightly low which was replaced. Patient had some cough and sputum production. However, chest x-ray was clear. He wa s provided symptomatic treatment. Echocardiogram showed normal EF. The patient's organ dysfunction improved. His kidney function normalized. With IV fluid hydration patient felt significantly better . He was then cleared for discharge and was sent home to finish a course of antibiotics. Medications: As per medication reconciliation list. Followup: Follow up with primary care physician in 2-3 days. Follow up with Infectious Disease doct or in 2 weeks. Return to ER for worsening condition. Diet: Diabetic. Activity: As tolerated. Physical Examination: General: Awake, alert, oriented x3. Morbidly obese male. CV: S1, S2. No murmurs. Respiratory: Moving air well bilaterally. No wheezing. Gastrointestinal: Abdomen is soft, nontender, nondistended. Positive bowel sounds. Extremities: No clubbing, cyanosis, or edema Neuro: Nonfocal. Total time spent discharging the patient was 41 minutes. /KATERYNA Voice ID: [id number] Report ID: [id number]
== END 2019-01-03 17:33 | disposition home or self-care (01) | DRG 872 ==
LOC: ER 23:41 → ERHOLD 12-31 04:22 → 2ND 12-31 07:23
PROVIDERS: ADMIT Family Medicine; ATTEND Family Medicine
DX: A41.9 Sepsis, unspecified organism (principal); N30.00 Acute cystitis without hematuria; N17.9 Acute kidney failure, unspecified; Z68.41 Body mass index [BMI] 40.0-44.9, adult; E11.65 Type 2 diabetes mellitus with hyperglycemia; N40.0 Benign prostatic hyperplasia without lower urinary tract symptoms; K21.9 Gastro-esophageal reflux disease without esophagitis; I10 Essential (primary) hypertension; E78.2 Mixed hyperlipidemia; E66.01 Morbid (severe) obesity due to excess calories
CPT/HCPCS: 36415; 71045; 71046; 80048; 80053; 80202; 81003; 81015; 82805; 82962; 83605; 83690; 83735; 84132; 84145; 84439; 84443; 84484; 85025; 85610; 87040; 87086; 87088; 87205; 87804; 93005; 93306; 94760; 96361; 96365; 96368; 97112; 97116; 97161; 97530; 99285; J0456; J0692; J0696; J1650; J7030; J7040